=== PATIENT | female | born 1990 | race Caucasian/White ===

== ENCOUNTER 2017-06-10 12:29 | Emergency (ER) | payer OTHER ==
[~2017-06-10] VITALS: Ht 172.7 cm; Wt 58.0 kg
[2017-06-10 12:38] VITALS: TEMP 37.2; Ht 172.7 cm; Wt 58.0 kg
[2017-06-10] MEDS ORDERED: CEPH500C PO (13:15)
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
[2017-06-10 13:34] VITALS: BP 132/69; PULSE 74; O2SAT 99
== END 2017-06-10 13:36 | disposition home or self-care (01) ==
LOC: C.EDB 12:30 → C.EDD 13:36
DX: J02.9 Acute pharyngitis, unspecified (principal)

== ENCOUNTER 2020-09-01 07:29 | Inpatient (IN) ==
[2020-09-01] MEDS ORDERED: OXYTOCIN 30 UNITS/500 ML BAG IV PRN ×2 (07:48→19:25)
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
[2020-09-01 08:37] LABS: Hematocrit (blood only) 33.2 % (37-47); Hemoglobin 11.4 g/dL (12.0-16.0); Mean Corpuscular Hemoglobin 31.4 pg (25-34); Mean Corpuscular Hgb Conc 34.3 g/dL (32-36); Mean Corpuscular Volume 91.5 fL (80-100); Mean Platelet Volume 12.6 fL (7.4-10.4); Platelet Count 101 K/uL (130-400); RDW Coefficient of Variation 13.4 % (11.5-14.5); RDW Standard Deviation 44.5 fL (36.4-46.3); Red Blood Count 3.63 M/uL (4.2-5.4); White Blood Count 7.83 K/uL (4.8-10.8)
[2020-09-01 08:38] LABS: Platelet Estimate Decreased (Normal)
[2020-09-01] MEDS: LACTATED RINGER'S 1,000 ML IV PRN ×2 (09:02→17:16)
[2020-09-01] MEDS ORDERED: SODIUM CHLORIDE 0.9% 250 ML IV PRN (09:17)
[2020-09-01 15:44] LABS: Albumin Level 2.9 gm/dl (3.4-5.0); BUN Creatinine Ratio 10.4 (10-20); Calcium 9.1 mg/dl (8.5-10.1); Creatinine Clr Calc Pharmacy 125.3 ml/min; Est GFR (African American) 136.2; Est GFR (Non-African American) 117.5; Potassium 3.7 mmol/L (3.5-5.1)
[2020-09-01 15:47] LABS: Albumin Globulin Ratio 0.6 (0.9-2); Bilirubin,Total 0.5 mg/dl (0.2-1); Globulin 4.5 gm/dl (2.5-4.0); Total Protein 7.4 gm/dl (6.4-8.2)
[2020-09-01] MEDS: OXYTOCIN 30 UNITS/500 ML BAG IV PRN ×2 (18:32→19:02)
--- NOTE | 2020-09-01 18:48 | Delivery Summary ---
Vaginal Delivery Summary Date of Service September 01, 2020 Vaginal Delivery Summary [facility] Vaginal Delivery Summary: Pre-delivery diagnoses: 30yo @ 38 3/, IOL for cHTN, h/o hemorrhage in prior Post-delivery diagnoses: same Procedure: spontaneous vaginal delivery Surgeon: Karla Garzon DO Complications: none Findings: Viable male . Apgars: 8/9. Weight pending, please see nursery records Estimated blood loss: 300ml Description of delivery: The patient progressed to complete without anesthesia. She then began to push. She spontaneously vaginally delivered a viable from the cephalic presentation. The head delivered in ENID position. No nuchal. The anterior shoulder delivered, followed by the posterior shoulder, followed by the body. The baby was placed on mother's abdomen and a spontaneous cry was heard. Delayed cord clamping was employed, and the cord was doubly clamped and cut. Cord blood was obtained. The placenta was delivered spontaneously intact with a 3-vessel cord. The uterus and vagina were swept of clots and debris. IV pitocin was given. The uterus became firm. The cervix, vagina, and perineum were inspected and no lacerations were noted. Excellent hemostasis was observed. The mother and baby are recovering in stable and good condition in the room. Sponge and instrument counts were correct x 2. Karla Garzon DO [facility] Vaginal Delivery Charge Vaginal Delivery Codes: 81767 global code for the antepartum, delivery, and post- Delivery Type Details: [facility]
[2020-09-01] MEDS ORDERED: DIPHTHERIA/TETANUS/PERTUSSIS 0.5 ML SYR/VIAL IM ONE (19:25)
[2020-09-01] MEDS ORDERED: SUPERCREAM 0.870% 15 GM JAR EXT PRN (19:25)
[2020-09-01] MEDS ORDERED: ACETAMINOPHEN 325 MG TAB PO PRN (19:25)
[2020-09-01] MEDS ORDERED: BENZOCAINE 20% AER SPR 82.5 GM CAN EXT PRN (19:25)
[2020-09-01] MEDS ORDERED: oxyCODONE/ACETAMINOPHEN 5mg/325mg TAB PO PRN (19:25)
[2020-09-01] MEDS ORDERED: HYDROCORTISONE ACETATE 25 MG SUPP PR PRN (19:25)
[2020-09-01] MEDS: DOCUSATE SODIUM 100 MG CAP PO SCH (20:58)
[2020-09-01] MEDS: IBUPROFEN 600 MG TAB PO PRN (20:58)
[2020-09-02] MEDS: IBUPROFEN 600 MG TAB PO PRN ×4 (01:27→14:52)
--- NOTE | 2020-09-02 05:25 | Obstetrical Progress Note ---
Date of Service <Anthony Gongora MD - Last Filed: 09/02/20 07:03> September 02, 2020 Assessment & Plan <Anthony Gongora MD - Last Filed: 09/02/20 07:03> (1) : - PNL: Rh pos, RI, GBS neg, COVID neg - Feels well today. Eating well, voiding well, ambulating well - Pain well controlled with ibuprofen 600mg Q4H PRN - Routine care -- OOB, ambulation, diet progression as tolerated - After discharge will have 6 week follow-up with Dr. Grazon Subjective <Anthony Gongora MD - Last Filed: 09/02/20 07:03> Radha is a 30 y/o female who is PPD #1 following at 38+ weeks. She reports feeling well overall this morning. Moderate abdominal cramping and 7/10 pain well managed on analgesics. Voiding well. Tolerating meals overnight without difficulty. Patient has been able to ambulate some. Has not passed gas and or had a bowel movement yet. Has persistent lochia with some improvement this morning. Currently . Review of Systems Denies fever or chills. Denies shortness of breath or cough. Denies chest pain. Denies breast pain. Denies dysuria. Denies leg pain or leg swelling. Denies headache or changes in vision. Physical Exam <Anthony Gongora MD - Last Filed: 09/02/20 07:03> General: Alert, oriented. No acute distress. Cardiac: Regular rate and rhythm. No murmurs. Respiratory: Clear to auscultation bilaterally a/p, no wheezes/rales/rhonchi. No increased work of breathing. Symmetrical chest rise. No respiratory distress. Abdomen: Soft, nontender, nondistended. Bowel sounds present. Uterus: Uterine fundus firm, palpable ~1 cm below umbilicus. Lower Extremities: No lower extremity edema or swelling. No deep calf pain. Vera's negative bilaterally. Results & Data ([facility]) <Anthony Gongora MD - Last Filed: 09/02/20 07:03> Vital Signs (Past 12 Hours) Vital Signs Temp Pulse Pulse Resp BP BP Pulse Ox 09/02/20 04:35 36.8 C 76 20 123/71 99 09/02/20 00:20 36.7 C 65 18 134/73 98 09/01/20 20:45 36.7 C 73 20 136/76 98 09/01/20 20:19 72 137/69 09/01/20 20:04 85 137/77 09/01/20 19:49 70 139/70 09/01/20 19:34 73 137/65 09/01/20 19:19 76 143/69 H 09/01/20 19:04 36.4 C L 71 18 145/74 H 09/01/20 18:49 76 146/79 H 09/01/20 18:34 67 139/74 09/01/20 17:54 79 143/65 H <Karla Garzon DO - Last Filed: 09/02/20 08:21> Co-Signing Physician Notes Resident Physician Supervision Note: I was present with Dr. Aogsto during the history and exam. I discussed the case with the resident and agree with the findings and plan as documented in the note. Any exceptions or clarifications are listed here: PPD#1 doing well. Desires DC home today. Reviewed DC instructions. Followup 6w PP. Documented By: Karla Garzon DO Resident Activity Tracking <Anthony Gongora MD - Last Filed: 09/02/20 07:03> Resident Involvement: Resident Care Provided Care Provided: OB Delivery
[2020-09-02 07:22] LABS: Hematocrit (blood only) 31.1 % (37-47); Hemoglobin 10.8 g/dL (12.0-16.0); Mean Corpuscular Hemoglobin 31.8 pg (25-34); Mean Corpuscular Hgb Conc 34.7 g/dL (32-36); Mean Corpuscular Volume 91.5 fL (80-100); Platelet Count 113 K/uL (130-400); Platelet Estimate Decreased (Normal); RDW Coefficient of Variation 13.5 % (11.5-14.5); RDW Standard Deviation 44.4 fL (36.4-46.3); White Blood Count 11.85 K/uL (4.8-10.8)
[2020-09-02] MEDS: DOCUSATE SODIUM 100 MG CAP PO SCH (07:51)
[2020-09-02] MEDS ORDERED: PRENATAL VITAMIN 1 TAB PO SCH (08:00)
[2020-09-02] MEDS ORDERED: PANTOprazole 40 MG TAB PO SCH (09:00)
[2020-09-02] MEDS ORDERED: bisacodyL 5 MG TABEC PO SCH (20:00)
[2020-09-03] MEDS ORDERED: bisacodyL 10 MG SUPP PR PRN (06:00)
== END 2020-09-02 20:06 | disposition home or self-care (01) | DRG 807 ==
LOC: 4S1 07:29 → 4S2 20:30

== ENCOUNTER 2023-03-22 08:11 | Inpatient (IN) ==
[2023-03-22] MEDS ORDERED: OXYTOCIN 30 UNITS/500 ML BAG IV PRN ×3 (08:37→14:56)
[2023-03-22] MEDS ORDERED: LIDOCAINE 1% LOCAL 20 ML VIAL INFIL PRN (08:37)
[2023-03-22] MEDS ORDERED: LACTATED RINGER'S 1,000 ML IV PRN (08:37)
--- NOTE | 2023-03-22 09:01 | History & Physical Report ---
Date of Service March 22, 2023 Assessment & Plan (1) Chronic hypertension affecting : (2) Elderly multigravida, currently : (3) Grand multiparity: Plan plan pitocin induction and then arom when indicated. fetus category one. has not done any delivery with medication. Has allergy to procaine and lidocaine. Will consult with anesthesia about what we can use if has tear. Anticipate . Admission and Anticipated Discharge Date Admission Date: March 22, 2023 History of Present Illness Chief Complaint: iol, chtn Primary Care Provider: Eunice Martinez MD Patient is a 33yowf with iup at 38 2/7 weeks who presents to labor and delivery for induction for chtn. Has been maintained on labetolol. No issues with the . Reassuring testing and good growth. and Delivery Plans AMA weekly NSTs @36weeks CHTN *Baby ASA daily start 12-28 wks, continue until delivery *wkly NST's @32wks and twice wkly @36 wks *Serial Growth US @ 24 (doppler only if abnml) *Baseline 24hr urine (additioinal PRN) 10/19 <201.3 *weekly LENIN's @ 32wk, only if on meds *Deliver [id number] Migraines--seeing Dr. Caicedo History of prior PPH--2015 EBL 850cc, cytotec 1000mcg, pt wants us to be aware. Prior LEEP (pap 12/2021) *Neg pap/Neg HPV, (01/20/23) *repeat in 1 year Induction Mar 22 OB Labs: A Blood Type A Positive 09/13/22 Antibody Screen NEGATIVE 09/13/22 Hemoglobin 12.4 g/dl (12.0-16.0) 02/14/23 Hematocrit 36.6 % (37.0-47.0) L 02/14/23 Mean Corpuscular Volume 87.6 fL (80.0-100.0) 02/14/23 Platelet Count 154 K/uL (130-400) 02/14/23 Rubella IgG Antibody Immune (Immune) 09/13/22 Rapid Plasma Reagin Nonreactive (Nonreactive) 01/05/23 Hepatitis B Surface Antigen Neg (Neg) 02/08/20 Hepatitis B Surface Antigen. NON-REACTIVE (NON-REACTIVE) 09/13/22 Hepatitis C Antibody (EIA) NON-REACTIVE (NON-REACTIVE) 09/13/22 HIV (1&2) Ab and P24 Ag, 4th Gener Neg (Neg) 02/08/20 HIV (1&2) Ag and Ab Confirmation NON-REACTIVE (NON-REACTIVE) 09/13/22 Glucose 1 Hour 50 gm Load 112 mg/dl (70-130) 01/05/23 OB Optional Labs: Chlamydia trachomatis RNA Not Detected (NotDetected) 09/13/22 Neisseria gonorrhoeae RNA Not Detected (NotDetected) 09/13/22 Thyroid Stimulating Hormone (TSH) 1.903 uIu/ml (0.300-4.500) 09/25/21 Labs Reviewed: cfdna-low risk--mln gbs neg Allergies Allergy/AdvReac Type Severity Reaction Status Date / Time cinnamon Allergy Unknown SWELLING Verified 03/21/23 10:18 OF THROAT AND PAIN kiwi Allergy Unknown Difficulty Verified 03/21/23 10:18 Breathing lidocaine Allergy Unknown SEIZURES Verified 03/21/23 10:18 AND PARALYSIS, MINI STROKE 2013 pollen extracts Allergy Unknown Sneezing Verified 03/21/23 10:18 procaine Allergy Unknown SEIZURES Verified 03/21/23 10:18 AND PARALYSIS, MINI STROKE 2013 Penicillins AdvReac Unknown DIZZY, Verified 03/21/23 10:18 SLEEPY, NAUSEA Home Medications Medication Instructions Recorded Confirmed Type famotidine 20 mg tablet 20 mg PO BIDM 06/24/21 03/22/23 History prenat.vits,priscilla,kio-ekof-xvrju 1 tab PO DAILY 09/08/22 03/22/23 History aspirin 81 mg capsule 81 mg PO DAILY 10/14/22 03/21/23 History memantine 10 mg tablet (Namenda) 10 mg PO QPM 30 days #30 tabs 12/09/22 03/21/23 Rx sumatriptan 20 mg/actuation nasal 20 mg intranasal Q2H PRN migraine 12/09/22 03/21/23 Rx spray headache #6 ea loratadine 10 mg tablet 10 mg PO DAILY 01/19/23 03/22/23 History labetalol 100 mg tablet 100 mg PO BID #60 tabs 01/20/23 03/22/23 Rx metoclopramide HCl 10 mg tablet 10 mg PO Q8H PRN nausea and 01/20/23 03/21/23 Rx (Reglan) vomiting #30 tabs ondansetron 4 mg disintegrating 4 mg PO Q6H PRN nausea and 02/16/23 03/21/23 Rx tablet vomiting #10 tabs Patient History Medical History (Updated 03/22/23 @ 09:10 by Rosalia Gan MD, FACOG) Chronic hypertension in Chronic tonsillitis Ectopic Family history of reaction to anesthesia PT NOT SURE GERD (gastroesophageal reflux disease) Grand multiparity History of anesthesia reaction AFTER LEEP PROCEDURE HEADACHES WERE SEVERE AND DIZZINESS FOR ABOUT A WEEK AFTER NO PROBLEMS AFTER ENDOSCOPY History of seizures last seizure 2013 RXN TO MEDICINE IN DENTIST OFFICE (UNCLEAR DETAILS) - NEURO EVAL ; NO FINDINGS History of TIA (transient ischemic attack) PT REPORTS MINI STROKE 2013 IN DENTIST OFFICE - D/T RXN TO MEDICINE PARALYSIS RIGHT SIDE, TREMORS , PANIC ATTTACKS ...SYMPTOMS RESOLVED AFTER 8 MON AND DIDN'T COME BACK Migraine headache CHRONIC /ON OCC NAUSEA/DIZZINESS WITH Mother currently breast-feeding Pollen allergy Renal atrophy recent incidental finding on ultrasound [facility] -- upcoming appt 07/[address] Juan HARRISON to discuss - MONITORING Tremor HX TREMORS / NOW RESOLVED Vertigo Surgical History H/O LEEP History of endoscopy No history of previous surgery S/P dilation and curettage Family History Grandfather (Paternal) Hypertension Grandmother (Paternal) Hypertension Father Stomach ulcer Mother Allergy to anesthetic agent also allergic to lidocaine, procaine Denies family history of Ovarian cancer Breast cancer Colorectal cancer Social History Smoking Status: Never smoker Second Hand Exposure: No; Do You Dip or Chew Tobacco: No; Hx Alcohol Use: No Hx Substance Use: No Preferred Language: Divehi Communication Ability: Effective Research Electrician Required: No Beliefs That Will Affect Care: None marital status: marital status details: fei Diane (35) [phone] Current Living Situation: Spouse and Family Current Living Situation Comment: AND 5 KIDS, no pets current occupational status: unemployed Feels Safe at Home: Yes Assistive Devices: Contacts and Glasses OB History Past Pregnancies Del. Date GA wks Lbr Lgth wt Sex Type del Anes Place Del Prov ? Comment 01/10/08 Aborted-Spontaneous 12/08/08 39 6 7-2 F None Other [facility]RIA Valenzuela No 04/27/10 39 7 8 F None [facility] Dr. Chiu No 08/03/11 39B M [facility] Dr. Nolan tyson No 09/09/14 39 2 7-9 F None [facility] Dr. Yun No 09/01/20 38 7lb 2.8oz M Non e [facility] Dr. Garzon No 03/08/22 Ectopic D/C [employer] History recent hx of leep for meseret 3 after last baby. Physical Exam Constitutional: WD/WN, vitals as above Gastrointestinal (Abdomen): soft, gravid, nt Psychiatric: A+Ox3, euthymic affect Genitourinary: cx--2-3, 90/-2, palpable scarring from leep toco--emeterio efm--140s with mod variabiltiy, accels to 150s, no decels Results & Data Vital Signs (Past 12 Hours) Vital Signs Temp Pulse Resp BP 03/22/23 08:33 84 112/59 L 03/22/23 08:25 21 03/22/23 08:25 36.6 C 21 Coding Level of Care Code None Diagnoses Chronic hypertension affecting O10.919 Elderly multigravida, currently O09.529 Grand multiparity Z64.1
[2023-03-22] MEDS ORDERED: SODIUM CHLORIDE 0.9% 250 ML IV PRN ×2 (09:05→12:37)
[2023-03-22 09:12] LABS: Hematocrit (blood only) 30.9 % (37.0-47.0); Hemoglobin 10.2 g/dl (12.0-16.0); Mean Corpuscular Hemoglobin 29.1 pg (25.0-34.0); Mean Corpuscular Volume 88.3 fL (80.0-100.0); Mean Platelet Volume 11.9 fL (9.4-12.4); Platelet Count 136 K/uL (130-400); RDW Coefficient of Variation 14.7 % (11.5-14.5); RDW Standard Deviation 47.7 fL (36.4-46.3); White Blood Count 7.33 K/ul (4.8-10.8)
--- NOTE | 2023-03-22 11:38 | Labor Progress Brief Note ---
Date of Service March 22, 2023 Subjective noting more contractions Assessment & Plan (1) Grand multiparity: (2) Chronic hypertension affecting : Plan arom for clear fluid. fetus category one. continue current management. Some cervical scarring, suspect that with more labor will break or I will be able to reduce. Admission and Anticipated Discharge Date Admission Date: March 22, 2023 Physical Exam Physical Exam: cx--2-3/90/-2, scarred toco--q2-4min, pit at 8 efm--130s wtih mod variability, accels present, no decels Results & Data Vital Signs (Past 12 Hours) Vital Signs Temp Pulse Resp BP 03/22/23 09:16 36.6 C 21 03/22/23 10:44 72 03/22/23 10:44 129/71 03/22/23 08:33 84 112/59 L 03/22/23 08:25 21 03/22/23 08:25 36.6 C 21 Coding Level of Care Code None Diagnoses Grand multiparity Z64.1 Chronic hypertension affecting O10.919
--- NOTE | 2023-03-22 13:43 | Labor Progress Brief Note ---
Date of Service March 22, 2023 Subjective getting uncomfortable Assessment & Plan (1) Grand multiparity: (2) Chronic hypertension affecting : Plan Doing well. Hope things will move quickly at this point. fetus category one. anticipate . Admission and Anticipated Discharge Date Admission Date: March 22, 2023 Physical Exam Physical Exam: cx--4-5/100/-2, still feeling some scarring and continue to try to break, getting softer toco--q2min, pit at 8 efm--135 with mod variabiltiy, accels to 160s, no decels Results & Data Vital Signs (Past 12 Hours) Vital Signs Temp Pulse Resp BP 03/22/23 09:16 36.6 C 21 03/22/23 12:45 65 03/22/23 12:45 131/75 03/22/23 11:46 73 03/22/23 11:46 138/65 03/22/23 10:44 72 03/22/23 10:44 129/71 03/22/23 08:33 84 112/59 L 03/22/23 08:25 21 03/22/23 08:25 36.6 C 21 Coding Level of Care Code None Diagnoses Grand multiparity Z64.1 Chronic hypertension affecting O10.919
[2023-03-22] MEDS ORDERED: miSOPROStoL 200 MCG TAB ONE (14:46)
[2023-03-22] MEDS ORDERED: BENZOCAINE 20% SPRY 85 APPLN/85 GM CAN EXT PRN (14:56)
[2023-03-22] MEDS ORDERED: ACETAMINOPHEN 325 MG TAB PO PRN (14:56)
[2023-03-22] MEDS ORDERED: bisacodyL 10 MG SUPP PR PRN (14:56)
[2023-03-22] MEDS ORDERED: DIPHTHERIA/TETANUS/PERTUSSIS Vaccine (Tdap, Age 7+yrs) 0.5mL SYR/VL IM ONE (14:56)
[2023-03-22] MEDS ORDERED: HYDROCORTISONE ACETATE 25 MG SUPP PR PRN (14:56)
[2023-03-22] MEDS ORDERED: oxyCODONE/ACETAMINOPHEN 5mg/325mg TAB PO PRN (14:56)
[2023-03-22] MEDS ORDERED: miSOPROStoL 200 MCG TAB PR ONE (14:57)
--- NOTE | 2023-03-22 15:03 | Delivery Summary ---
Vaginal Delivery Summary Date of Service March 22, 2023 Vaginal Delivery Summary [facility] Pre-operative Diagnosis: at 38 weeks chtn ama grand multip Post-operative Diagnosis: same Procedure: pitocin induction arom EBL: 350cc Anesthesia: none Procedure: The patient presented to labor and delivery for induction of labor for chtn. Her cervix was favorable so pitocin started. Then arom for copious clear fluid. There was some scarring of the cervix from her previous leep that was broken upp with examining finger. She rapidly progressed after arom to c/c/+2 with urge to push. The patient pushed for one contraction to deliver a viable female infant in hayley position. The rest of the was then delivered without difficulty. The baby was vigorous. The nose and mouth were bulb suctioned and the infant was placed in the maternal abdomen for drying and attention. Cord was clamped and cut at one minute of life. Cord blood and segment obtained. Placenta delivered spontaneous, intact with a three vessel cord. Cervix/sulci/rectum/perineum were intact. Hemostasis obtained with dilute pitocin and fundal massage. Apgars were pending. Mother and baby doing well at the end of the delivery. [facility] Vaginal Delivery Charge Delivery Type Details:
[2023-03-22] MEDS: IBUPROFEN 600 MG TAB PO PRN ×2 (16:42→20:47)
[2023-03-22] MEDS: FAMOTIDINE 20 MG TAB PO SCH (18:36)
[2023-03-22] MEDS: LABETALOL HCL 100 MG TAB PO SCH (20:47)
[2023-03-22] MEDS: DOCUSATE SODIUM 100 MG CAP PO SCH (20:47)
[2023-03-23] MEDS: IBUPROFEN 600 MG TAB PO PRN ×3 (01:49→13:42)
--- NOTE | 2023-03-23 04:51 | Obstetrical Progress Note ---
Date of Service March 23, 2023 Assessment & Plan (1) Encounter for care and examination after delivery: Plan s/p day 1 Viral signs reviewed and WNL Blood type A+, Rubella immune, GBS negative Pt doing well clinically Encourage ambulation Monitor and control pain with Motrin prn Regular diet, Monitor Lochia Encourage breast feeding D/C today, instructions reviewed with patient Admission and Anticipated Discharge Date Admission Date: March 22, 2023 Supervising Physician Co-Signing Physician Notes Resident Physician Supervision Note: I interviewed and examined the patient. Discussed with Dr. Neo Ayala and agree with findings and plan as documented in the note. Any exceptions or clarifications are listed here: Patient doing well. Routine care. When asked by me, not sure if she wants d/c today. If all goes well, probably. concerned about breast feeding. Blood pressures controlled, continue labetolol. Documented By: Rosalia Gan MD, FACOG Subjective 33 yo post- day 1 s/p Ambulation: ambulating normally Voiding: no voiding problems Passing Gas: Yes Diet Tolerance: regular diet Lochia:: Small Feeding Type: breast feeding Current Pain Level: Minimal Resting comfortably this AM in NAD. Denies DOBBS, CP, SOB, N/V/D, LE pain/swelling. Review of Systems Review of Systems: All systems reviewed & are unremarkable except as noted in HPI & below Physical Exam Physical Exam: General: patient resting comfortably, NAD, non-toxic in appearance, AA&O x 4, answers questions appropriately. Skin: warm, dry, intact HEENT: NC/AT, anicteric sclera, conjunctiva without injection, moist mucus membranes. Heart: +S1/S2, regular, no m/r/g Lungs: equal air entry bilaterally, no rales/rhonchi/wheezes Abd: +BS, soft, NT/ND, uterine fundus firm at umbilicus Ext: warm, no clubbing/cyanosis or edema, Vera's neg. Neuro: nonfocal, patient AA&O x 4, speech intact, no facial droop, moving all extremities on command. Results & Data Vital Signs (Past 12 Hours) Vital Signs Temp Pulse Resp BP Pulse Ox O2 Del Method 03/22/23 20:45 37 C 78 18 139/79 96 Room Air 03/23/23 03:45 36.6 C 67 16 132/75 98 Room Air 03/22/23 23:12 36.6 C 67 18 131/77 97 Room Air 03/22/23 17:10 36.9 C 81 16 135/79 Room Air Resident Activity Tracking Resident Involvement: Resident Care Provided Care Provided: OB Delivery
[2023-03-23 06:39] LABS: Hematocrit (blood only) 27.8 % (37.0-47.0)
[2023-03-23] MEDS: FAMOTIDINE 20 MG TAB PO SCH (07:57)
[2023-03-23] MEDS: DOCUSATE SODIUM 100 MG CAP PO SCH (07:58)
[2023-03-23] MEDS: LABETALOL HCL 100 MG TAB PO SCH (07:58)
[2023-03-23] MEDS ORDERED: PRENATAL VITAMIN 1 TAB PO SCH (08:00)
[2023-03-23] MEDS ORDERED: LORATADINE 10 MG TAB PO SCH (09:00)
[2023-03-23] MEDS ORDERED: bisacodyL 5 MG TABEC PO SCH (20:00)
--- NOTE | 2023-03-25 11:10 | Coding Query ---
CODING QUERY To promote full compliance with coding requirements relating to patient care, provider participation is requested in all cases of personal property assessor uncertainty. Please assist us with the question(s) below: Coding Question(s): The H&P documents, "Migraines--seeing Dr. Caicedo". Please specify below, regarding Migraines: ( x ) Migraines are complicating ( ) Migraines are not complicating Physician's Response(s): Thank you Juli Dickey Principal Diagnosis: "that condition established after study, to be chiefly responsible for occasioning the admission of the patient to the hospital for care." Co-Existing Principal Diagnosis: "when two or more diagnoses equally meet the criteria for principal diagnosis as determined by the circumstances of admission, diagnostic work up, and/or therapy provided, and the Alphabetic Index, Tabular List, or another coding guideline does not provide sequencing direction, any one of the diagnoses may be sequenced first." "When the physician has documented what appears to be a current diagnosis in the body of the record, but has not included the diagnosis in the final diagnostic statement, the physician should be asked whether the diagnosis should be added." (Source Coding Clinic 2 QTR90. p3-4) DAYNE
== END 2023-03-23 16:30 | disposition home or self-care (01) | DRG 806 ==
LOC: 4S1 08:11 → 4E2 17:46

== ENCOUNTER 2025-03-27 05:30 | Inpatient (IN) ==
[2025-03-27] MEDS ORDERED: OXYTOCIN 30 UNITS/NSS 30 UNITS/500 ML BAG IV PRN (05:45)
[2025-03-27] MEDS ORDERED: LACTATED RINGER'S 1,000 ML IV PRN (05:45)
[2025-03-27] MEDS ORDERED: LIDOCAINE 1% LOCAL 20 ML VIAL INFIL PRN (05:45)
--- NOTE | 2025-03-27 05:52 | History & Physical Report ---
Date of Service March 27, 2025 Assessment & Plan (1) Grand multiparity: Plan: Admit to L&D. EFM/toco. Labs. Desires epidural. Admission and Anticipated Discharge Date Admission Date: March 27, 2025 History of Present Illness Chief Complaint: labor Primary Care Provider: Eunice Martinez MD 35yo @ 38 09/17, came to L&D after contractions. Membranes swept in office today. and Delivery Plans Grand multip - 6 prior vaginal deliveries. CHTN - not on meds *Baby ASA daily start 12-28 wks, continue until delivery *wkly NST's @32wks and twice wkly @36 wks *Serial Growth US @ 24 (doppler only if abnml) *Baseline 24hr urine (additioinal PRN) *weekly LENIN's @ 32wk(If on Meds) *Deliver [id number] (If on Meds) *Deliver [id number] (Not on Meds)-----03/27 AMA Weekly NST's @ 36 weeks LEEP LENY III 2021 Hx PPH 2014 Pt Carrier of [facility] *FOB negative Anesthesia consult 01/28/25 for "mini stroke" with local anesthetic in dental office 2012--> had consult ok with epidural. Parvovirus Exposure *parvo titers showed immunity *MFM consult due to pt concerns-->done and no f/u or rpt labs per mfm Allergies Allergy/AdvReac Type Severity Reaction Status Date / Time cinnamon Allergy Unknown Throat Verified 03/26/25 13:01 swelling/pain kiwi Allergy Unknown Difficulty Verified 03/26/25 13:01 Breathing lidocaine Allergy Unknown Seizures, Verified 03/26/25 13:01 paralysis, mini stroke (2013) pollen extracts Allergy Unknown Sneezing Verified 03/26/25 13:01 procaine Allergy Unknown Unknown Verified 03/26/25 13:01 childhood rxn per pt, N/V/Diarrhea per S records Penicillins AdvReac Unknown Dizziness, Verified 03/26/25 13:01 drowsy, nausea Home Medications Medication Instructions Recorded Confirmed Type famotidine 20 mg tablet 20 mg PO BIDM 06/24/21 03/27/25 History prenat.vits,priscilla,hqd-ivoz-ripax 1 tab PO DAILY 09/08/22 03/27/25 History eletriptan 20 mg tablet 20 mg PO Q2H PRN migraine headache 01/31/25 03/27/25 Rx 30 days #9 tabs metoclopramide HCl 10 mg tablet 10 mg PO Q6H PRN nausea and 01/31/25 03/27/25 Rx (Reglan) vomiting #20 tabs Patient History Medical History Anesthesia complication Per OB records, patient being sent for PAT E&A d/t history of mini stroke/seizure felt to be r/t medication (local anesthetic) given during dental procedure 2013. Per Ob note 12/17/24, "Tried to obtain allergy testing, but unable to do because she was ." Lidocaine/procaine are listed specifically under patient's allergies per chart review. Patient was seen by [facility] neuro 07/23/13 following the event. Per visit, confirmation that reaction was to use of lidocaine injection during dental procedure. Chronic tonsillitis Ectopic GERD (gastroesophageal reflux disease) History of seizures Last seizure 2013 [place] to be reaction to medicine given in dentist office, s/p unremarkable neuro evaluation, no further details History of TIA (transient ischemic attack) "Mini stroke"/seizure (2013) [place] to be reaction to medicine given in dentist office, s/p unremarkable neuro evaluation, no further details No residual issues Migraine headache Pollen allergy hemorrhage Renal atrophy Under surveillance Tremor Hx, resolved Vertigo Surgical History H/O LEEP History of anesthesia reaction Severe headaches/dizziness x one week after LEEP procedure No problems after endoscopy History of endoscopy S/P dilation and curettage Family History Grandfather (Paternal) Hypertension Grandmother (Paternal) Hypertension Father Stomach ulcer Mother Allergy to anesthetic agent also allergic to lidocaine, procaine Denies family history of Ovarian cancer Breast cancer Colorectal cancer Social History (Updated 08/31/24 @ 09:17 by Shantel Benites) Smoking Status: Never smoker Second Hand Exposure: No; Do You Dip or Chew Tobacco: No; Hx Alcohol Use: No Hx Substance Use: No Preferred Language: Gambian Communication Ability: Effective Cryptography Teacher Required: No Beliefs That Will Affect Care: None marital status: marital status details: Ogun Bayrakgar (35) [phone] Current Living Situation: Spouse and Family Current Living Situation Comment: AND 6 KIDS, no pets current occupational status: unemployed current occupation: homemaker Feels Safe at Home: Yes Assistive Devices: None Review of Systems All systems reviewed & are unremarkable except as noted in HPI & below Physical Exam Constitutional: WD/WN, vitals as above Respiratory: normal respiratory effort, lungs clear to auscultation no respiratory distress Cardiovascular: Rate/Rhythm: regular rate and regular rhythm Gastrointestinal (Abdomen): Inspection/Auscultation: abdomen normal to inspection Percussion/Palpation: abdomen soft; abdomen nontender Gravid. No s/s chorio or abruption. Skin: no rashes, warm and dry Psychiatric: A+Ox3, euthymic affect Results & Data Vital Signs (Past 12 Hours) Vital Signs Pulse BP 03/27/25 05:47 90 141/85 H Coding Level of Care Code None Diagnoses Grand multiparity Z64.1
[2025-03-27] MEDS: ONDANSETRON INJ 2 MG/ML 2 ML VIAL IV PRN (06:14)
[2025-03-27] MEDS ORDERED: SODIUM CHLORIDE 0.9% 100 ML IV PRN (06:16)
[2025-03-27] MEDS: OXYTOCIN 30 UNITS/NSS 30 UNITS/500 ML BAG IV PRN (06:28)
[2025-03-27 06:37] LABS: Hematocrit (blood only) 35.7 % (37.0-47.0); Hemoglobin 12.0 g/dl (12.0-16.0); Mean Corpuscular Hemoglobin 30.8 pg (25.0-34.0); Mean Corpuscular Volume 91.5 fL (80.0-100.0); Platelet Count 124 K/uL (130-400); RDW Standard Deviation 47.0 fL (36.4-46.3); Red Blood Count 3.90 M/uL (4.20-5.40); White Blood Count 12.16 K/ul (4.8-10.8)
--- NOTE | 2025-03-27 06:57 | Delivery Summary ---
Vaginal Delivery Summary Date of Service March 27, 2025 Vaginal Delivery Summary [facility] Vaginal Delivery Summary: Pre-delivery diagnoses: 35yo @ 38 4/7, spontaneous labor, cHTN, AMA, h/o LENY 3 Post-delivery diagnoses: same Procedure: spontaneous vaginal delivery Surgeon: Karla Garzon DO Complications: none Findings: Viable female . Apgars: 8/9. Weight pending, please see nursery records Quantitative Blood Loss: 1cc Description of delivery: The patient progressed to complete without anesthesia. She then began to push. She spontaneously vaginally delivered a viable from the cephalic presentation. The head delivered in ENID position. The anterior shoulder delivered, followed by the posterior shoulder, followed by the body. The baby was placed on mother's abdomen and a spontaneous cry was heard. Delayed cord clamping was employed, and the cord was doubly clamped and cut. Cord blood was obtained. The placenta was delivered spontaneously intact with a 3-vessel cord. The uterus and vagina were swept of clots and debris. IV pitocin was given. The uterus became firm. The cervix, vagina, and perineum were inspected and no lacerations were noted. Excellent hemostasis was observed. The mother and baby are recovering in stable and good condition in the room. Sponge and instrument counts were correct x 2. Karla Garzon DO [facility] Vaginal Delivery Charge Vaginal Delivery Codes: 23535 global code for the antepartum, delivery, and post- Delivery Type Details: [facility]
[2025-03-27] MEDS ORDERED: HYDROCORTISONE ACETATE 25 MG SUPP PR PRN (07:00)
[2025-03-27] MEDS: IBUPROFEN 600 MG TAB PO PRN (07:11)
[2025-03-27] MEDS: ACETAMINOPHEN 325 MG TAB PO PRN (07:12)
[2025-03-27] MEDS: BENZOCAINE 20% SPRY 85 APPLN/85 GM CAN EXT PRN (09:33)
[2025-03-27] MEDS: AMPICILLIN/SULBACTAM SOD 3,000 MG/100 ML BAG IV STA (09:37)
[2025-03-27] MEDS: DOCUSATE SODIUM 100 MG CAP PO SCH (13:47)
[2025-03-27] MEDS: FAMOTIDINE 20 MG TAB PO SCH (13:48)
[2025-03-27] MEDS: PRENATAL VITAMIN 1 TAB PO SCH (13:48)
[2025-03-27] MEDS: DIPHTHER/TETAN/PERTUS Vaccine (Tdap, Adol/Adult) 0.5mL IM ONE (13:49)
[2025-03-27] MEDS: AMPICILLIN/SULBACTAM SOD 1,500 MG/100 ML BAG IV SCH (14:55)
[2025-03-28 03:52] VITALS: PULSE 71; O2SAT 96
[2025-03-28 06:45] LABS: Hematocrit (blood only) 34.1 % (37.0-47.0); Hemoglobin 11.6 g/dl (12.0-16.0)
[2025-03-28 07:48] VITALS: BP 128/79; RESP 16; TEMP 98.1
--- NOTE | 2025-03-28 08:13 | Obstetrical Progress Note ---
Date of Service March 28, 2025 Assessment & Plan (1) exam: Plan: 35yo post- day 1 s/p Fells well today. No fevers. Continue post- care Encourage ambulation and Pain controlled with Ibuprofen, Tylenol Vital Signs and Hgb stable Discharge home today, follow up with OB provider in 6 weeks Admission and Anticipated Discharge Date Admission Date: March 27, 2025 Supervising Physician Co-Signing Physician Notes Resident Physician Supervision Note: I interviewed and examined the patient. Discussed with Dr. Marie and agree with findings and plan as documented in the note. Any exceptions or clarifications are listed here: [ ] Documented By: Diane Yun MD, FACOG, MSCP Subjective 35yo post- day 1 s/p Ambulation: Ambulating normally Voiding: No voiding problems Passing Gas:: Yes Diet Tolerance:: regular diet Lochia:: Small Feeding Type:: Current Pain Level:2/10 controlled with Tylenol, Ibuprofen Resting comfortably this AM in NAD. Denies fevers, DOBBS, CP, SOB, N/V/D, LE pain/swelling. Physical Exam Physical Exam: General: patient resting comfortably, NAD, non-toxic in appearance, answers questions appropriately Skin: warm, dry, intact Heart: S1/S2 heard, regular, no m/r/g Lungs: equal air entry bilaterally, no rales/rhonchi/wheezes Abd: Normoactive BS, soft, NT/ND, uterine fundus firm at umbilicus Ext: warm, no clubbing/cyanosis or edema, Vera's neg Neuro: nonfocal, patient AAOx4, speech intact, no facial droop, moving all extremities on command Results & Data Vital Signs (Past 12 Hours) Vital Signs Temp Pulse Resp BP Pulse Ox O2 Del Method 03/28/25 07:44 36.7 C 71 16 128/79 Room Air 03/28/25 03:20 36.8 C 71 18 126/85 96 Room Air 03/27/25 23:35 36.7 C 63 16 121/70 95 Room Air 03/27/25 21:15 36.8 C 72 18 142/76 H 96 Room Air Resident Activity Tracking Resident Involvement: Resident Care Provided Care Provided: OB Delivery
== END 2025-03-28 12:37 | disposition home or self-care (01) | DRG 807 ==
LOC: 4S1 05:30 → 4E2 09:00